=== PATIENT | male | born 1985 ===

== ENCOUNTER 2019-03-08 17:05 | Inpatient (IN) | payer OTHER ==
[~2019-03-08] VITALS: Ht 175.3 cm; Wt 86.2 kg
[2019-03-08 17:15] VITALS: BP 156/90
[2019-03-08] MEDS ORDERED: ONDANSETRON HCL 4 MG TABLET PO PRN (18:00)
[2019-03-08] MEDS: OxyCODONE HCL 5 MG IR TABLET PO PRN (18:36)
[2019-03-08] MEDS: DOCUSATE SODIUM 100 MG CAPSULE PO SCH (20:14)
[2019-03-08] MEDS: SENNA 187 MG TABLET PO SCH (20:14)
[2019-03-08] MEDS ORDERED: MELATONIN 3 MG TABLET PO PRN (22:00)
[2019-03-08] MEDS: ACETAMINOPHEN 325 MG TABLET PO SCH (23:10)
[2019-03-08 23:11] VITALS: BP 152/78
[2019-03-09 06:47] LABS: BASOPHILS % (AUTO) 0.7 % (0.0-2.0); EOSINOPHILS % (AUTO) 5.5 % (1.0-6.0); HEMATOCRIT 42.7 % (41-53); HEMOGLOBIN 14.3 g/dL (13.5-17.5); LYMPHOCYTES # (AUTO) 1.4 K/uL (1.0-4.8); LYMPHOCYTES % (AUTO) 16.3 % (22.0-44.0); MEAN CORPUSCULAR HEMOGLOBIN 30.2 pg (26.0-34.0); MEAN CORPUSCULAR HGB CONC 33.5 G/dL (31.0-37.0); MEAN CORPUSCULAR VOLUME 90 fL (80-100); MONOCYTES # (AUTO) 0.7 K/uL (0.1-1.0); MONOCYTES % (AUTO) 7.9 % (2.0-9.0); NEUTROPHILS # (AUTO) 5.9 K/uL (1.8-7.7); NEUTROPHILS % (AUTO) 69.6 % (40.0-70.0); PLATELET COUNT (AUTO) 372 K/uL (150-450); RED BLOOD CELL COUNT(AUTO) 4.74 MIL/uL (4.50-5.90); RED CELL DISTRIBUTION WIDTH 13.3 % (11.5-14.5)
[2019-03-09 07:40] VITALS: BP 153/84
[2019-03-09 07:48] LABS: ALANINE AMINOTRANSFERASE 98 U/L (12-78); ALBUMIN 3.8 g/dL (3.4-5.0); ALKALINE PHOSPHATASE 77 U/L (46-116); ANION GAP 14 mmol/L (8-16); ASPARTATE AMINOTRANSFERASE 54 U/L (15-37); BILIRUBIN,TOTAL 0.7 mg/dL (0.1-1.0); CALCIUM, TOTAL 9.8 mg/dL (8.8-10.5); CARBON DIOXIDE 23 mmol/L (22-29); CHLORIDE 99 mmol/L (98-107); GLOMERULAR FILTR. RATE CALC > 60 mL/min (>60); GLUCOSE,RANDOM 113 mg/dL (70-110); POTASSIUM 4.3 mmol/L (3.5-5.1); SODIUM SERUM 136 mmol/L (136-145); TOTAL PROTEIN, SERUM 8.7 g/dL (6.4-8.2); UREA NITROGEN, BLOOD 18 mg/dL (7-18)
[2019-03-09] MEDS: ACETAMINOPHEN 325 MG TABLET PO SCH ×3 (08:00→23:51)
[2019-03-09] MEDS: OxyCODONE HCL 10 MG IR TABLET PO PRN (08:15)
[2019-03-09] MEDS: DOCUSATE SODIUM 100 MG CAPSULE PO SCH ×2 (08:15→21:29)
[2019-03-09] MEDS: PANTOPRAZOLE SODIUM 40 MG DR TABLET PO SCH (08:15)
[2019-03-09 16:47] VITALS: BP 145/76
[2019-03-09] MEDS: OxyCODONE HCL 5 MG IR TABLET PO PRN (16:47)
[2019-03-09 21:24] VITALS: BP 144/83
[2019-03-09] MEDS: SENNA 187 MG TABLET PO SCH (21:29)
[2019-03-09 23:50] VITALS: BP 151/78
[2019-03-10] MEDS: ACETAMINOPHEN 325 MG TABLET PO SCH ×3 (06:11→18:17)
[2019-03-10 09:29] VITALS: BP 151/32
[2019-03-10] MEDS: DOCUSATE SODIUM 100 MG CAPSULE PO SCH ×2 (10:26→20:00)
[2019-03-10] MEDS: PANTOPRAZOLE SODIUM 40 MG DR TABLET PO SCH (10:27)
[2019-03-10] MEDS: OxyCODONE HCL 10 MG IR TABLET PO PRN (14:53)
[2019-03-10 15:50] VITALS: BP 146/80
[2019-03-10] MEDS: SENNA 187 MG TABLET PO SCH (20:00)
[2019-03-11] VITALS: BP 138/77
[2019-03-11] MEDS: ACETAMINOPHEN 325 MG TABLET PO SCH ×2 (00:04→06:06)
[2019-03-11] MEDS: OxyCODONE HCL 5 MG IR TABLET PO PRN (07:28)
[2019-03-11] MEDS: DOCUSATE SODIUM 100 MG CAPSULE PO SCH ×2 (08:23→20:47)
[2019-03-11] MEDS: PANTOPRAZOLE SODIUM 40 MG DR TABLET PO SCH (08:23)
[2019-03-11 08:31] VITALS: BP 149/77
[2019-03-11] MEDS: ACETAMINOPHEN 325 MG TABLET PO PRN (13:33)
[2019-03-11 16:11] VITALS: BP 165/84
[2019-03-11] MEDS: SENNA 187 MG TABLET PO SCH (20:47)
[2019-03-11] MEDS: GABAPENTIN 300 MG CAPSULE PO SCH (20:47)
[2019-03-12] VITALS: BP 157/94
[2019-03-12] MEDS: OxyCODONE HCL 5 MG IR TABLET PO PRN (06:33)
[2019-03-12 07:33] VITALS: BP 153/94
[2019-03-12] MEDS: PANTOPRAZOLE SODIUM 40 MG DR TABLET PO SCH (07:51)
[2019-03-12] MEDS: DOCUSATE SODIUM 100 MG CAPSULE PO SCH ×2 (07:51→20:58)
[2019-03-12] MEDS: ACETAMINOPHEN 325 MG TABLET PO PRN (12:12)
[2019-03-12 15:48] VITALS: BP 150/83
[2019-03-12] MEDS: SENNA 187 MG TABLET PO SCH (20:58)
[2019-03-12] MEDS: GABAPENTIN 300 MG CAPSULE PO SCH (20:58)
[2019-03-13 04:45] VITALS: BP 149/79
[2019-03-13] MEDS: PANTOPRAZOLE SODIUM 40 MG DR TABLET PO SCH (08:15)
[2019-03-13] MEDS: DOCUSATE SODIUM 100 MG CAPSULE PO SCH ×2 (08:15→20:34)
[2019-03-13 08:16] VITALS: BP 157/95
[2019-03-13] MEDS: ACETAMINOPHEN 325 MG TABLET PO PRN (08:16)
[2019-03-13 15:30] VITALS: BP 151/85
[2019-03-13] MEDS: OxyCODONE HCL 5 MG IR TABLET PO PRN (17:49)
[2019-03-13 20:31] VITALS: BP 137/73
[2019-03-13] MEDS: GABAPENTIN 300 MG CAPSULE PO SCH (20:34)
[2019-03-13] MEDS: SENNA 187 MG TABLET PO SCH (20:34)
[2019-03-14 05:43] VITALS: BP 144/70
[2019-03-14] MEDS: PANTOPRAZOLE SODIUM 40 MG DR TABLET PO SCH (07:36)
[2019-03-14] MEDS: DOCUSATE SODIUM 100 MG CAPSULE PO SCH ×2 (07:36→20:25)
[2019-03-14] MEDS: ACETAMINOPHEN 325 MG TABLET PO PRN (07:36)
[2019-03-14 08:32] VITALS: BP 130/66
[2019-03-14 15:12] VITALS: BP 161/86
[2019-03-14 19:31] VITALS: BP 159/84
[2019-03-14] MEDS: GABAPENTIN 300 MG CAPSULE PO SCH (20:25)
[2019-03-14] MEDS: SENNA 187 MG TABLET PO SCH (20:25)
[2019-03-14 20:38] VITALS: BP_SYST 130; BP_SYST 145; BP_DIAS 72; BP_DIAS 82
[2019-03-14 23:00] VITALS: BP 127/69
[2019-03-15 08:10] VITALS: BP 138/78
[2019-03-15] MEDS: PANTOPRAZOLE SODIUM 40 MG DR TABLET PO SCH (08:14)
[2019-03-15] MEDS: DOCUSATE SODIUM 100 MG CAPSULE PO SCH ×2 (08:14→20:36)
[2019-03-15] MEDS: ACETAMINOPHEN 325 MG TABLET PO PRN (08:14)
[2019-03-15 15:15] VITALS: BP 151/78
[2019-03-15 20:35] VITALS: BP 142/77
[2019-03-15] MEDS: GABAPENTIN 300 MG CAPSULE PO SCH (20:36)
[2019-03-15] MEDS: SENNA 187 MG TABLET PO SCH (20:36)
[2019-03-16 05:00] VITALS: BP 135/74
[2019-03-16 07:20] VITALS: BP 130/81
[2019-03-16] MEDS ORDERED: PANT20TA PO (08:30)
[2019-03-16] MEDS ORDERED: GABA-531 PO (08:30)
[2019-03-16] MEDS ORDERED: DSSL PO (08:30)
[2019-03-16] MEDS: ACETAMINOPHEN 325 MG TABLET PO PRN (08:33)
[2019-03-16] MEDS: PANTOPRAZOLE SODIUM 40 MG DR TABLET PO SCH (08:33)
[2019-03-16] MEDS: DOCUSATE SODIUM 100 MG CAPSULE PO SCH (08:36)
== END 2019-03-16 15:00 | disposition home or self-care (01) | DRG 563 ==
LOC: 2WR 17:05
DX: S52.045A Nondisplaced fracture of coronoid process of left ulna, initial encounter for closed fracture (principal); S52.201A Unspecified fracture of shaft of right ulna, initial encounter for closed fracture; S52.91XA Unspecified fracture of right forearm, initial encounter for closed fracture; S52.122A Displaced fracture of head of left radius, initial encounter for closed fracture; G47.00 Insomnia, unspecified; G47.33 Obstructive sleep apnea (adult) (pediatric); K59.03 Drug induced constipation; K31.89 Other diseases of stomach and duodenum; T40.2X5A Adverse effect of other opioids, initial encounter; Y92.89 Other specified places as the place of occurrence of the external cause; Z79.899 Other long term (current) drug therapy; V19.88XA Pedal cyclist (driver) (passenger) injured in other specified transport accidents, initial encounter; Y93.89 Activity, other specified; Y99.8 Other external cause status
CPT/HCPCS: 87081; 97110; 97112; 97116; 97150; 97161; 97166; 97530; 97535; 99366